=== PATIENT | female | born 1980 | race Asian ===

== ENCOUNTER 2023-01-27 18:07 | Inpatient (IN) | payer OTHER ==
[~2023-01-27] VITALS: Ht 160 cm; Wt 85.7 kg
[2023-01-27 18:29] VITALS: BP_SYST 154; PULSE 92; RESP 16; TEMP 98.7; O2SAT 96
[2023-01-27] MEDS ORDERED: FUROSEMIDE 20 MG/2 ML VIAL IVP ONE (18:45)
[2023-01-27 19:26] LABS: BASOPHILS # (AUTO) 0.1 K/uL (0.0-0.2); BASOPHILS % (AUTO) 0.9 % (0.0-2.0); EOSINOPHILS # (AUTO) 0.5 K/uL (0.0-0.4); EOSINOPHILS % (AUTO) 5.5 % (0.0-4.0); HEMATOCRIT 38.5 % (36-48); HEMOGLOBIN 12.1 g/dL (12.0-16.0); LYMPHOCYTES # (AUTO) 1.6 K/uL (1.0-5.5); LYMPHOCYTES % (AUTO) 18.1 % (20.5-51.5); MEAN CORPUSCULAR HEMOGLOBIN 26 pg (27-31); MEAN CORPUSCULAR HGB CONC 31 % (32-36); MEAN CORPUSCULAR VOLUME 82 fL (79.0-98.0); MONOCYTES # (AUTO) 0.7 K/uL (0.0-1.0); MONOCYTES % (AUTO) 7.5 % (1.7-9.3); PLATELET COUNT (AUTO) 381 K/uL (130-430); RED BLOOD CELL COUNT(AUTO) 4.73 MIL/uL (4.2-6.2); RED CELL DISTRIBUTION WIDTH 14.2 % (9.0-15.0); WHITE BLOOD COUNT (AUTO) 8.8 K/uL (4.8-10.8)
[2023-01-27 19:43] LABS: ANION GAP 6 (5-15); CALCIUM 8.3 mg/dL (8.4-11.0); CHLORIDE 105 mmol/L (98-107); CREATININE 1.45 mg/dL (0.55-1.30); GFR AFRICAN AMERICAN 51 mL/min (>90); GLUCOSE 184 mg/dL (74-106); UREA NITROGEN, BLOOD 18 mg/dL (8-21)
[2023-01-27 19:51] LABS: ALANINE AMINOTRANSFERASE 17 U/L (12-78); ALBUMIN 2.8 g/dL (3.4-4.8); ASPARTATE AMINOTRANSFERASE 15 U/L (10-37); TOTAL BILIRUBIN 0.6 mg/dL (0.0-1.0)
[2023-01-27] MEDS ORDERED: FUROSEMIDE 100 MG in D5W 90 ML IV SCH (22:00)
[2023-01-28] VITALS (7 sets, daily range): BP systolic 133–161; PULSE 82–90; RESP 18–20; TEMP 97–98.7; O2SAT 94–96
[2023-01-28] MEDS ORDERED: FUROSEMIDE 100 MG/10 ML VIAL ONE (01:14)
[2023-01-28] MEDS: SPIRONOLACTONE 25 MG TABLET (ALDACTONE) PO SCH ×2 (09:27→20:07)
[2023-01-28] MEDS: FUROSEMIDE 40 MG/4 ML VIAL IVP SCH ×2 (09:28→20:08)
[2023-01-28] MEDS: CARVEDILOL 12.5 MG TABLET (COREG) PO SCH ×2 (09:28→20:07)
[2023-01-28] MEDS: SACUBITRIL/VALSARTAN 24 MG-26 MG 1 TABLET PO SCH ×2 (11:13→20:07)
[2023-01-28 11:39] LABS: BARBITURATE, URINE NEGATIVE (NEG <=200)
[2023-01-28 11:40] LABS: BENZODIAZEPINE, URINE NEGATIVE (NEG <=150); CANNABINOID, URINE NEGATIVE (NEG <=50); COCAINE, URINE NEGATIVE (NEG <=150); METHAMPHETAMINES SCREEN,URINE NEGATIVE (NEG <=500); OPIATE, URINE NEGATIVE (NEG <=100); PHENCYCLIDINE SCREEN,URINE NEGATIVE (NEG <=25); UR TRICYCLIC ANTIDEPRESSANTS NEGATIVE (NEG <=300); URINE AMPHETAMINE NEGATIVE (NEG <=500); URINE METHADONE NEGATIVE (NEG <=200); URINE OXYCODONE SCREEN NEGATIVE (NEG <=100); URINE PROPOXYPHENE SCREEN NEGATIVE (NEG <=300)
[2023-01-28 13:20] LABS: HCG,QUAL RESULT NEGATIVE (NEGATIVE)
[2023-01-29 06:18] LABS: BASOPHILS # (AUTO) 0.1 K/uL (0.0-0.2); BASOPHILS % (AUTO) 0.9 % (0.0-2.0); EOSINOPHILS # (AUTO) 0.7 K/uL (0.0-0.4); EOSINOPHILS % (AUTO) 7.4 % (0.0-4.0); HEMATOCRIT 37.7 % (36-48); HEMOGLOBIN 12.3 g/dL (12.0-16.0); LYMPHOCYTES # (AUTO) 1.7 K/uL (1.0-5.5); LYMPHOCYTES % (AUTO) 18.5 % (20.5-51.5); MEAN CORPUSCULAR HEMOGLOBIN 26 pg (27-31); MEAN CORPUSCULAR HGB CONC 33 % (32-36); MEAN CORPUSCULAR VOLUME 80 fL (79.0-98.0); MONOCYTES # (AUTO) 0.8 K/uL (0.0-1.0); MONOCYTES % (AUTO) 8.9 % (1.7-9.3); NEUTROPHILS # (AUTO) 5.9 K/uL (1.8-7.7); NEUTROPHILS % (AUTO) 64.3 % (40.0-70.0); PLATELET COUNT (AUTO) 344 K/uL (130-430); RED BLOOD CELL COUNT(AUTO) 4.74 MIL/uL (4.2-6.2); RED CELL DISTRIBUTION WIDTH 13.6 % (9.0-15.0); WHITE BLOOD COUNT (AUTO) 9.1 K/uL (4.8-10.8)
[2023-01-29 06:55] LABS: ALBUMIN 2.5 g/dL (3.4-4.8); CALCIUM 8.4 mg/dL (8.4-11.0); CREATININE 1.19 mg/dL (0.55-1.30); THYROID STIMULATING HORMONE 2.1 uIu/mL (0.34-4.82); TOTAL BILIRUBIN 0.6 mg/dL (0.0-1.0)
[2023-01-29 08:00] VITALS: BP_SYST 137; PULSE 79; RESP 18; TEMP 97; O2SAT 95
[2023-01-29] MEDS: SACUBITRIL/VALSARTAN 24 MG-26 MG 1 TABLET PO SCH ×2 (09:14→20:10)
[2023-01-29] MEDS: POTASSIUM CHLORIDE 20 MEQ TAB.PRT.SR PO SCH ×2 (09:14→20:08)
[2023-01-29] MEDS: SPIRONOLACTONE 25 MG TABLET (ALDACTONE) PO SCH ×2 (09:15→20:08)
[2023-01-29] MEDS: CARVEDILOL 12.5 MG TABLET (COREG) PO SCH ×2 (09:15→20:08)
[2023-01-29] MEDS: FUROSEMIDE 40 MG/4 ML VIAL IVP SCH ×2 (09:16→20:09)
[2023-01-29 12:00] VITALS: BP_SYST 133; PULSE 76; RESP 18; TEMP 97; O2SAT 95
[2023-01-29] MEDS ORDERED: KCL 40 mEq in 100 mL (PREMIX) 100 ML IV ONE (12:45)
[2023-01-29] MEDS ORDERED: POTASSIUM CHLORIDE 40 MEQ, LIDOCAINE JECT 2% PF 100 MG 75 MG in NS 250 ML IV ONE (15:00)
[2023-01-29 16:00] VITALS: BP_SYST 132; PULSE 83; RESP 18; TEMP 97.1; O2SAT 96
[2023-01-29 16:04] LABS: BASOPHILS # (AUTO) 0.1 K/uL (0.0-0.2); BASOPHILS % (AUTO) 0.7 % (0.0-2.0); EOSINOPHILS # (AUTO) 0.5 K/uL (0.0-0.4); EOSINOPHILS % (AUTO) 4.7 % (0.0-4.0); HEMATOCRIT 42.1 % (36-48); HEMOGLOBIN 13.3 g/dL (12.0-16.0); LYMPHOCYTES # (AUTO) 1.3 K/uL (1.0-5.5); LYMPHOCYTES % (AUTO) 13.4 % (20.5-51.5); MEAN CORPUSCULAR HEMOGLOBIN 25 pg (27-31); MEAN CORPUSCULAR HGB CONC 32 % (32-36); MEAN CORPUSCULAR VOLUME 80 fL (79.0-98.0); MONOCYTES # (AUTO) 0.7 K/uL (0.0-1.0); MONOCYTES % (AUTO) 7.3 % (1.7-9.3); NEUTROPHILS # (AUTO) 7.4 K/uL (1.8-7.7); NEUTROPHILS % (AUTO) 73.9 % (40.0-70.0); PLATELET COUNT (AUTO) 387 K/uL (130-430); RED BLOOD CELL COUNT(AUTO) 5.25 MIL/uL (4.2-6.2); RED CELL DISTRIBUTION WIDTH 13.4 % (9.0-15.0)
[2023-01-29] MEDS ORDERED: DEXTROSE 50% JECT 50 ML DISP.SYRIN IVP PRN (16:30)
[2023-01-29] MEDS ORDERED: D5W 1,000 ML IV PRN (16:30)
[2023-01-29] MEDS ORDERED: GLUCOSE (DEXTROSE) ORAL GEL -Adults PO PRN (16:30)
[2023-01-29] MEDS: INSULIN REGULAR, HUMAN 100 UNITS/ML, 3 ML VIAL (humuLIN R) SUBCUT PRN (16:48)
[2023-01-29] MEDS ORDERED: EMPAGLIFLOZIN 10 MG TABLET PO ONE (17:00)
[2023-01-29 20:00] VITALS: BP_SYST 127; PULSE 74; RESP 16; TEMP 97.1; O2SAT 97
[2023-01-29 22:00] VITALS: O2SAT 96
[2023-01-30] VITALS: BP_SYST 127; PULSE 79; RESP 16; TEMP 97.2; O2SAT 95
[2023-01-30 06:10] LABS: BASOPHILS # (AUTO) 0.1 K/uL (0.0-0.2); BASOPHILS % (AUTO) 1.1 % (0.0-2.0); EOSINOPHILS # (AUTO) 0.6 K/uL (0.0-0.4); EOSINOPHILS % (AUTO) 6.9 % (0.0-4.0); HEMATOCRIT 43.2 % (36-48); HEMOGLOBIN 13.7 g/dL (12.0-16.0); LYMPHOCYTES # (AUTO) 1.8 K/uL (1.0-5.5); MEAN CORPUSCULAR HEMOGLOBIN 25 pg (27-31); MEAN CORPUSCULAR HGB CONC 32 % (32-36); MEAN CORPUSCULAR VOLUME 80 fL (79.0-98.0); MONOCYTES # (AUTO) 0.8 K/uL (0.0-1.0); MONOCYTES % (AUTO) 9.7 % (1.7-9.3); NEUTROPHILS # (AUTO) 5.1 K/uL (1.8-7.7); NEUTROPHILS % (AUTO) 61.3 % (40.0-70.0); PLATELET COUNT (AUTO) 372 K/uL (130-430); RED BLOOD CELL COUNT(AUTO) 5.39 MIL/uL (4.2-6.2); RED CELL DISTRIBUTION WIDTH 13.9 % (9.0-15.0); WHITE BLOOD COUNT (AUTO) 8.4 K/uL (4.8-10.8)
[2023-01-30 06:37] LABS: ALBUMIN 2.7 g/dL (3.4-4.8); CALCIUM 9.1 mg/dL (8.4-11.0); CREATININE 1.45 mg/dL (0.55-1.30); TOTAL BILIRUBIN 0.7 mg/dL (0.0-1.0)
[2023-01-30 07:51] VITALS: BP_SYST 140; PULSE 82; RESP 17; TEMP 97.1; O2SAT 94
[2023-01-30] MEDS ORDERED: EMPAGLIFLOZIN 10 MG TABLET PO SCH (09:00)
[2023-01-30] MEDS ORDERED: FUROSEMIDE 40 MG TABLET PO SCH (09:00)
[2023-01-30] MEDS: SPIRONOLACTONE 25 MG TABLET (ALDACTONE) PO SCH (10:07)
[2023-01-30] MEDS: POTASSIUM CHLORIDE 20 MEQ TAB.PRT.SR PO SCH (10:07)
[2023-01-30] MEDS: CARVEDILOL 12.5 MG TABLET (COREG) PO SCH (10:08)
[2023-01-30] MEDS: SACUBITRIL/VALSARTAN 24 MG-26 MG 1 TABLET PO SCH (10:09)
[2023-01-30] MEDS: INSULIN REGULAR, HUMAN 100 UNITS/ML, 3 ML VIAL (humuLIN R) SUBCUT PRN ×2 (12:31→17:26)
[2023-01-30] MEDS ORDERED: POTASSIUM CHLORIDE 20 MEQ TAB.PRT.SR PO ONE (14:00)
[2023-01-30] MEDS ORDERED: COR12.5 PO (15:03)
[2023-01-30] MEDS ORDERED: EMPA10TA PO (15:03)
[2023-01-30] MEDS ORDERED: FURO-149 PO (15:03)
[2023-01-30] MEDS ORDERED: SACU1TAB PO (15:03)
[2023-01-30] MEDS ORDERED: SPIR25TA PO (15:03)
[2023-01-30 16:05] VITALS: BP_SYST 115; PULSE 81; RESP 18; TEMP 97; O2SAT 95
[2023-01-30 16:41] VITALS: BP_SYST 115; PULSE 81; RESP 18; TEMP 97; O2SAT 95
== END 2023-01-30 18:50 | disposition home or self-care (01) | DRG 291 ==
LOC: SED 18:07 → STU 21:53
PROVIDERS: ADMIT Specialist; ATTEND Specialist
DX: I11.0 Hypertensive heart disease with heart failure (principal); I50.21 Acute systolic (congestive) heart failure; I42.0 Dilated cardiomyopathy; B33.24 Viral cardiomyopathy; Z91.148 Patient's other noncompliance with medication regimen for other reason
CPT/HCPCS: 36415; 71045; 76376; 76770; 80053; 80061; 80307; 82550; 82962; 83037; 83735; 83880; 84443; 84484; 84703; 85025; 85379; 93005; 93306; 99285; G0378; J1815; J1940; J3480; J7050; J7060